=== PATIENT | female | born 1975 | race Caucasian/White ===

== ENCOUNTER 2022-03-29 08:48 | Outpatient (CLI) | payer BC, OTHER | END 2022-03-29 08:49 | disposition home or self-care (01) | LOC: DTY/OP 08:48 | PROVIDERS: ATTEND Surgery | DX: E66.01 Morbid (severe) obesity due to excess calories (principal); Z68.41 Body mass index [BMI] 40.0-44.9, adult | CPT/HCPCS: 97802 ==